=== PATIENT | female | born 1950 | race Two or more races ===

== ENCOUNTER 2017-11-27 19:36 | Inpatient (IN) | payer OTHER, MEDICAID ==
[~2017-11-27] VITALS: Ht 160 cm; Wt 97.4 kg
[2017-11-27] MEDS ORDERED: SODIUM CHLORIDE 0.9% 500 ML IVB ONE (20:33)
[2017-11-27 22:13] LABS: Alanine Aminotransferase 72 U/L (13-56); Albumin 2.4 g/dL (3.4-5.0); Alkaline Phosphatase 124 U/L (45-117); Anion Gap 11 (5-15); Aspartate Aminotransferase 59 U/L (15-37); BUN/Creatinine Ratio 17.3; Bilirubin, Total 3.7 mg/dL (0.2-1.0); Blood Urea Nitrogen 29 mg/dL (7-18); Calcium 8.2 mg/dL (8.5-10.1); Carbon Dioxide 16 mmol/L (21-32); Chloride 103 mmol/L (98-107); GFR African American 39 mL/min; GFR Non-African American 32 mL/min; Glucose 90 mg/dL (74-106); Magnesium 2.1 mg/dL (1.6-2.6); Sodium 130 mmol/L (136-145); Total Protein 6.9 g/dL (6.4-8.2)
[2017-11-27 22:21] LABS: Potassium 6.6 mmol/L (3.5-5.1)
[2017-11-27 23:49] LABS: Hematocrit 33.6 % (36.0-46.0); Hemoglobin 10.8 g/dL (12.2-16.2); Mean Corpuscular Hgb Conc. 32.1 g/dL (32.0-36.0); Mean Corpuscular Volume 84.1 fL (80.0-100.0); Platelet Count (auto) 171 10^3/uL (140-450); Red Blood Cells 3.99 10^6/uL (4.0-5.20); Red Cell Distribution Width 17.9 % (11.8-14.3); White Blood Cell 15.2 10^3/uL (4.4-10.8)
[2017-11-27 23:57] LABS: Basophils % (manual) 0 (0.0-2.0); Blast Cells 0; Metamyelocytes % 0; Myelocytes % 0; Promyelocytes % 0; Reactive Lymphocytes 0
[2017-11-28] VITALS (28 sets, daily range): BP systolic 74–121; BP diastolic 28–67
[2017-11-28 00:03] LABS: BUN/Creatinine Ratio 17.5; Calcium 8.1 mg/dL (8.5-10.1)
[2017-11-28] MEDS ORDERED: SUCCINYLCHOLINE CHLORIDE 20 MG/ML 10ML VIAL IV ONE ×2 (00:06→01:15)
[2017-11-28 00:07] LABS: Potassium 6.8 mmol/L (3.5-5.1)
[2017-11-28 00:18] LABS: Band Neutrophils % (manual) 4; Eosinophils % (manual) 1 (0-7); Lymphocytes % (manual) 10 (10.0-50.0); Monocytes % (manual) 9 (0-12)
[2017-11-28] MEDS ORDERED: PROPOFOL 100 ML IV SCH (00:41)
[2017-11-28] MEDS ORDERED: PROPOFOL 100 ML IV ONE (00:43)
[2017-11-28] MEDS ORDERED: PANTOPRAZOLE 40 MG/10 ML VIAL IV ONE (00:45)
[2017-11-28] MEDS ORDERED: NITROGLYCERIN 0.4 MG SL TAB SL PRN (00:45)
[2017-11-28] MEDS ORDERED: MORPHINE SULFATE 8mg/ml INJ SDV IV PRN (00:45)
[2017-11-28] MEDS ORDERED: PIPERACILLIN-TAZOB 2.25GM 50 ML IV SCH (00:45)
[2017-11-28] MEDS: SODIUM CHLORIDE 0.9% 1,000 ML IV SCH ×2 (00:45→17:06)
[2017-11-28] MEDS ORDERED: hydrALAZINE HCL 20 MG/ML VL IV PRN (00:45)
[2017-11-28] MEDS ORDERED: LACTULOSE 20Gm/30ML SOLN PO ONE (00:45)
[2017-11-28] MEDS ORDERED: SODIUM POLYSTYRENE SULF 15GM/60ML SUSP PO ONE ×3 (01:00→07:15)
[2017-11-28] MEDS ORDERED: CALCIUM GLUC 4.65meq/50ml D5AE 50 ML IV ONE ×2 (01:00→07:15)
[2017-11-28] MEDS ORDERED: FUROSEMIDE 20 MG/2 ML VIAL IV ONE (01:00)
[2017-11-28 01:48] LABS: INR 1.63 (0.9-1.15); Partial Thromboplastin Time 34.8 sec (22.64-33.71); Prothrombin Time 17.8 sec (9.37-12.3)
[2017-11-28] MEDS ORDERED: MIDAZOLAM DRIP 50 mg/50mL 50 ML IV ONE (02:12)
[2017-11-28] MEDS: PROPOFOL 100 ML IV SCH (02:12)
[2017-11-28] MEDS ORDERED: SODIUM CHLORIDE 0.9% 500 ML IV ONE (02:15)
[2017-11-28] MEDS: MIDAZOLAM DRIP 50 mg/50mL 50 ML IV SCH (02:35)
[2017-11-28] MEDS ORDERED: LACTULOSE 20Gm/30ML SOLN PR ONE (02:45)
[2017-11-28] MEDS ORDERED: LACTULOSE 20Gm/30ML SOLN PO SCH (06:00)
[2017-11-28] MEDS: LACTULOSE 20Gm/30ML SOLN PO SCH ×5 (06:20→22:00)
[2017-11-28] MEDS ORDERED: NOREPINEPHRINE BITARTRATE 1 ML IV ONE (06:57)
[2017-11-28] MEDS: NOREPINEPHRINE 16 MG/500ML KIT 500 ML IV SCH (07:10)
[2017-11-28] MEDS ORDERED: ALBUTEROL SULF 2.5 MG/0.5ML(0.5%) NEB SOLN NEB ONE (07:15)
[2017-11-28] MEDS ORDERED: InsuLIN REG 1unit/0.01ml Soln (100units/ml) IV ONE (07:15)
[2017-11-28] MEDS ORDERED: SODIUM BICARBONATE 8.4 % INJ 50ML VIAL IV ONE (07:15)
[2017-11-28] MEDS ORDERED: DEXTROSE (50%) 50ML SYRG IV ONE (07:15)
[2017-11-28 09:51] LABS: Urine Bacteria NONE SEEN /hpf (None Seen); Urine Blood Negative /uL (Negative); Urine Budding Yeast FEW /hpf (None Seen); Urine Mucus FEW (None Seen); Urine Specific Gravity 1.021 (1.001-1.035); Urine WBC 4 /hpf (0 - 5)
[2017-11-28] MEDS: PANTOPRAZOLE 40 MG/10 ML VIAL IV SCH (10:39)
[2017-11-28] MEDS: PIPERACILLIN-TAZOB 2.25GM 50 ML IV SCH ×3 (12:10→23:41)
[2017-11-28] MEDS: PHENYLEPHRINE INJ 20 MG in SODIUM CHL 0.9% 250 ML IV SCH ×2 (15:18→23:20)
[2017-11-29] VITALS (103 sets, daily range): BP systolic 81–120; BP diastolic 33–83
[2017-11-29] MEDS: PROPOFOL 100 ML IV SCH (00:44)
[2017-11-29] MEDS: LACTULOSE 20Gm/30ML SOLN PO SCH ×6 (02:00→21:38)
[2017-11-29] MEDS: MIDAZOLAM DRIP 50 mg/50mL 50 ML IV SCH ×3 (02:07→22:00)
[2017-11-29] MEDS: NOREPINEPHRINE 16 MG/500ML KIT 500 ML IV SCH ×2 (03:44→22:00)
[2017-11-29] MEDS: PIPERACILLIN-TAZOB 2.25GM 50 ML IV SCH ×3 (06:29→19:19)
[2017-11-29 07:46] LABS: Red Cell Distribution Width 18.6 % (11.8-14.3)
[2017-11-29 07:51] LABS: Hematocrit 29.9 % (36.0-46.0); Hemoglobin 9.5 g/dL (12.2-16.2); Mean Corpuscular Hemoglobin 27.4 pg (28.0-32.0); Mean Corpuscular Volume 85.7 fL (80.0-100.0); Platelet Count (auto) 154 10^3/uL (140-450); Red Blood Cells 3.48 10^6/uL (4.0-5.20); White Blood Cell 17.1 10^3/uL (4.4-10.8)
[2017-11-29] MEDS: PHENYLEPHRINE INJ 20 MG in SODIUM CHL 0.9% 250 ML IV SCH ×3 (07:58→19:15)
[2017-11-29 08:02] LABS: Band Neutrophils % (manual) 0; Basophils % (manual) 0 (0.0-2.0); Blast Cells 0; Metamyelocytes % 0; Myelocytes % 0; Promyelocytes % 0; Reactive Lymphocytes 0
[2017-11-29 08:14] LABS: BUN/Creatinine Ratio 14.1; Bilirubin, Total 3.7 mg/dL (0.2-1.0); Calcium 7.7 mg/dL (8.5-10.1); Total Protein 5.8 g/dL (6.4-8.2)
[2017-11-29] MEDS: PANTOPRAZOLE 40 MG/10 ML VIAL IV SCH (09:53)
[2017-11-29 10:42] LABS: Creatinine, Urine 114 mg/dL (30.0-125.0); Protein, Urine 47.1 mg/dL (0.0-11.9); Sodium Urine < 5 mmol/L (40-220)
[2017-11-29 12:47] LABS: Hepatitis B Surface Antigen Negative (Negative)
[2017-11-29 12:48] LABS: Hepatitis C Antibody Negative (Negative)
[2017-11-29] MEDS: OCTREOTIDE ACETATE 100 MCG/ML VL SUBCUT SCH ×2 (14:00→21:39)
[2017-11-29] MEDS: SODIUM CHLORIDE 0.9% 1,000 ML IV SCH ×2 (14:11→22:57)
[2017-11-29] MEDS: ALBUMIN 25% 100 ML IV SCH ×2 (14:25→22:00)
[2017-11-29 14:46] LABS: Eosinophils % (manual) 1 (0-7); Lymphocytes % (manual) 7 (10.0-50.0); Monocytes % (manual) 4 (0-12)
[2017-11-29 20:14] LABS: Hemoglobin 8.2 g/dL (12.2-16.2); Mean Corpuscular Volume 87.2 fL (80.0-100.0)
[2017-11-29] MEDS ORDERED: PANTOPRAZOLE 40 MG/10 ML VIAL IV ONE (20:15)
[2017-11-29 20:16] LABS: Hematocrit 25.8 % (36.0-46.0); Mean Corpuscular Hemoglobin 27.6 pg (28.0-32.0); Mean Corpuscular Hgb Conc. 31.6 g/dL (32.0-36.0); Platelet Count (auto) 118 10^3/uL (140-450); Red Blood Cells 2.96 10^6/uL (4.0-5.20); Red Cell Distribution Width 18.7 % (11.8-14.3); White Blood Cell 13.9 10^3/uL (4.4-10.8)
[2017-11-29 20:20] LABS: Basophils % (manual) 0 (0.0-2.0); Blast Cells 0; Eosinophils % (manual) 0 (0-7); Myelocytes % 0; Promyelocytes % 0; Reactive Lymphocytes 0
[2017-11-29 20:40] LABS: Band Neutrophils % (manual) 4; Lymphocytes % (manual) 9 (10.0-50.0); Metamyelocytes % 2
[2017-11-29 20:41] LABS: Monocytes % (manual) 6 (0-12)
[2017-11-29] MEDS: OCTREOTIDE ACETATE 500 MCG in SODIUM CHL 0.9% 99 ML IV SCH (21:30)
[2017-11-29] MEDS: PANTOPRAZOLE 80 MG in SODIUM CHL 0.9% 60 ML IV SCH (21:30)
[2017-11-29 21:35] LABS: INR 2.72 (0.9-1.15)
[2017-11-29] MEDS: RIFAXIMIN 550 MG TAB PO SCH (21:39)
[2017-11-30] VITALS (108 sets, daily range): BP systolic 94–133; BP diastolic 43–73
[2017-11-30] MEDS: PHENYLEPHRINE INJ 20 MG in SODIUM CHL 0.9% 250 ML IV SCH ×3 (00:38→16:32)
[2017-11-30] MEDS: PROPOFOL 100 ML IV SCH (00:44)
[2017-11-30 01:43] LABS: Hematocrit 28.3 % (36.0-46.0)
[2017-11-30] MEDS: LACTULOSE 20Gm/30ML SOLN PO SCH ×6 (02:00→22:00)
[2017-11-30] MEDS: ALBUMIN 25% 100 ML IV SCH (03:04)
[2017-11-30] MEDS: MIDAZOLAM DRIP 50 mg/50mL 50 ML IV SCH ×3 (03:05→22:16)
[2017-11-30 05:50] LABS: White Blood Cell 9.4 10^3/uL (4.4-10.8)
[2017-11-30 05:58] LABS: Hematocrit 24.4 % (36.0-46.0); Hemoglobin 8.1 g/dL (12.2-16.2); Mean Corpuscular Hemoglobin 28.1 pg (28.0-32.0); Mean Corpuscular Hgb Conc. 33.1 g/dL (32.0-36.0); Mean Corpuscular Volume 85.1 fL (80.0-100.0); Platelet Count (auto) 64 10^3/uL (140-450); Red Blood Cells 2.87 10^6/uL (4.0-5.20)
[2017-11-30 06:08] LABS: Basophils % (manual) 0 (0.0-2.0); Blast Cells 0; Myelocytes % 0; Promyelocytes % 0; Reactive Lymphocytes 0
[2017-11-30] MEDS: PIPERACILLIN-TAZOB 2.25GM 50 ML IV SCH ×4 (06:14→17:38)
[2017-11-30 06:29] LABS: Albumin 2.3 g/dL (3.4-5.0); BUN/Creatinine Ratio 17.5; Bilirubin, Total 4.3 mg/dL (0.2-1.0); Calcium 7.7 mg/dL (8.5-10.1); Total Protein 5.4 g/dL (6.4-8.2)
[2017-11-30 06:45] LABS: Band Neutrophils % (manual) 5; Eosinophils % (manual) 1 (0-7); Lymphocytes % (manual) 14 (10.0-50.0); Metamyelocytes % 2; Monocytes % (manual) 9 (0-12)
[2017-11-30] MEDS: PANTOPRAZOLE 80 MG in SODIUM CHL 0.9% 60 ML IV SCH ×2 (07:01→16:15)
[2017-11-30] MEDS: OCTREOTIDE ACETATE 500 MCG in SODIUM CHL 0.9% 99 ML IV SCH ×2 (07:01→16:32)
[2017-11-30] MEDS: PANTOPRAZOLE 40 MG/10 ML VIAL IV SCH (10:00)
[2017-11-30] MEDS: RIFAXIMIN 550 MG TAB PO SCH ×2 (10:00→22:01)
[2017-11-30] MEDS: PHYTONADIONE (VIT K)10 MG/ML 1ML VIAL SUBCUT SCH (10:00)
[2017-11-30 10:42] LABS: Hemoglobin 7.8 g/dL (12.2-16.2)
[2017-11-30 10:44] LABS: Hematocrit 24.6 % (36.0-46.0)
[2017-11-30 10:56] LABS: INR 1.89 (0.9-1.15); Prothrombin Time 20.7 sec (9.37-12.3)
[2017-11-30] MEDS: SODIUM BICARBONATE 50ML VIAL 50 ML in D5W/SOD CHL 0.45% 1,000 ML IV SCH (13:30)
[2017-11-30 21:20] LABS: Hematocrit 29.5 % (36.0-46.0); Hemoglobin 9.9 g/dL (12.2-16.2)
[2017-12-01] VITALS (108 sets, daily range): BP systolic 90–146; BP diastolic 43–84
[2017-12-01] MEDS: PIPERACILLIN-TAZOB 2.25GM 50 ML IV SCH ×5 (00:05→23:48)
[2017-12-01] MEDS: PROPOFOL 100 ML IV SCH (00:44)
[2017-12-01] MEDS: PHENYLEPHRINE INJ 20 MG in SODIUM CHL 0.9% 250 ML IV SCH ×3 (01:38→17:46)
[2017-12-01] MEDS: LACTULOSE 20Gm/30ML SOLN PO SCH ×6 (02:03→21:58)
[2017-12-01] MEDS: OCTREOTIDE ACETATE 500 MCG in SODIUM CHL 0.9% 99 ML IV SCH ×3 (02:03→23:48)
[2017-12-01] MEDS: MIDAZOLAM DRIP 50 mg/50mL 50 ML IV SCH ×2 (03:05→09:48)
[2017-12-01 03:58] LABS: Basophils # (auto) 0 uL; Hemoglobin 10.2 g/dL (12.2-16.2); Monocytes # (auto) 0.8 uL; White Blood Cell 10.5 10^3/uL (4.4-10.8)
[2017-12-01 04:01] LABS: Basophils % (auto) 0.2 % (0.0-2.0); Eosinophils # (auto) 0.1 uL; Eosinophils % (auto) 1.3 % (0.0-7.0); Hematocrit 30.5 % (36.0-46.0); Lymphocytes % (auto) 9.1 % (10.0-50.0); Mean Corpuscular Hemoglobin 28.1 pg (28.0-32.0); Mean Corpuscular Hgb Conc. 33.4 g/dL (32.0-36.0); Mean Corpuscular Volume 84.2 fL (80.0-100.0); Monocytes % (auto) 7.9 % (0.0-12.0); Neutrophils # (auto) 8.6 uL; Neutrophils % (auto) 81.5 % (37.0-80.0); Nucleated Red Blood Cells % 0.2 %; Platelet Count (auto) 58 10^3/uL (140-450); Red Blood Cells 3.62 10^6/uL (4.0-5.20); Red Cell Distribution Width 17.7 % (11.8-14.3)
[2017-12-01 04:10] LABS: Albumin 2.2 g/dL (3.4-5.0); Calcium 7.3 mg/dL (8.5-10.1)
[2017-12-01 04:14] LABS: Bilirubin, Total 5.8 mg/dL (0.2-1.0); Total Protein 5.4 g/dL (6.4-8.2)
[2017-12-01 04:30] LABS: Potassium 2.8 mmol/L (3.5-5.1)
[2017-12-01] MEDS: PANTOPRAZOLE 80 MG in SODIUM CHL 0.9% 60 ML IV SCH ×3 (05:10→23:49)
[2017-12-01] MEDS: SODIUM BICARBONATE 50ML VIAL 50 ML in D5W/SOD CHL 0.45% 1,000 ML IV SCH ×2 (06:29→09:47)
[2017-12-01] MEDS: POTASSIUM CHL 20MEQ/100ML 100 ML IV SCH ×4 (06:30→12:00)
[2017-12-01] MEDS: NOREPINEPHRINE 16 MG/500ML KIT 500 ML IV SCH (07:09)
[2017-12-01] MEDS ORDERED: SODIUM BICARBONATE 8.4% INJ 50ML SYRINGE ONE (08:31)
[2017-12-01] MEDS: PANTOPRAZOLE 40 MG/10 ML VIAL IV SCH (10:16)
[2017-12-01] MEDS: RIFAXIMIN 550 MG TAB PO SCH ×2 (10:16→21:56)
[2017-12-01] MEDS: PHYTONADIONE (VIT K)10 MG/ML 1ML VIAL SUBCUT SCH (10:17)
[2017-12-01] MEDS: D5W/SOD CHL 0.45%/KCL 20MEQ 1,000 ML IV SCH (12:44)
[2017-12-02] VITALS (103 sets, daily range): BP systolic 92–147; BP diastolic 50–91
[2017-12-02] MEDS: D5W/SOD CHL 0.45%/KCL 20MEQ 1,000 ML IV SCH ×3 (00:35→09:45)
[2017-12-02] MEDS: PROPOFOL 100 ML IV SCH (00:44)
[2017-12-02] MEDS: LACTULOSE 20Gm/30ML SOLN PO SCH ×6 (02:24→22:10)
[2017-12-02] MEDS: PHENYLEPHRINE INJ 20 MG in SODIUM CHL 0.9% 250 ML IV SCH ×3 (02:38→17:32)
[2017-12-02] MEDS: PIPERACILLIN-TAZOB 2.25GM 50 ML IV SCH ×2 (06:37→12:09)
[2017-12-02] MEDS: NOREPINEPHRINE 16 MG/500ML KIT 500 ML IV SCH ×2 (06:45→10:51)
[2017-12-02 07:14] LABS: Basophils # (auto) 0 uL; Eosinophils # (auto) 0.2 uL; Hemoglobin 9.8 g/dL (12.2-16.2); Red Cell Distribution Width 18.4 % (11.8-14.3); White Blood Cell 9.8 10^3/uL (4.4-10.8)
[2017-12-02 07:18] LABS: Basophils % (auto) 0.2 % (0.0-2.0); Eosinophils % (auto) 2.1 % (0.0-7.0); Hematocrit 29.5 % (36.0-46.0); Lymphocytes # (auto) 1.1 uL; Lymphocytes % (auto) 10.8 % (10.0-50.0); Mean Corpuscular Hemoglobin 28.4 pg (28.0-32.0); Mean Corpuscular Hgb Conc. 33.3 g/dL (32.0-36.0); Mean Corpuscular Volume 85.2 fL (80.0-100.0); Monocytes % (auto) 10.5 % (0.0-12.0); Neutrophils # (auto) 7.5 uL; Neutrophils % (auto) 76.4 % (37.0-80.0); Nucleated Red Blood Cells % 0.3 %; Platelet Count (auto) 55 10^3/uL (140-450); Red Blood Cells 3.46 10^6/uL (4.0-5.20)
[2017-12-02 07:23] LABS: BUN/Creatinine Ratio 20.5; Calcium 7.2 mg/dL (8.5-10.1)
[2017-12-02] MEDS: PANTOPRAZOLE 80 MG in SODIUM CHL 0.9% 60 ML IV SCH ×2 (08:15→12:09)
[2017-12-02] MEDS: OCTREOTIDE ACETATE 500 MCG in SODIUM CHL 0.9% 99 ML IV SCH ×3 (08:15→19:40)
[2017-12-02] MEDS: RIFAXIMIN 550 MG TAB PO SCH ×2 (10:23→22:10)
[2017-12-02] MEDS: MIDODRINE HCL 10 MG TAB PO SCH ×2 (14:30→22:10)
[2017-12-02] MEDS: NutriHep RTU 240 mL Unflavored PO SCH (17:32)
[2017-12-02] MEDS: PIPERACILLIN-TAZOB 3.375GM 100 ML IV SCH (17:32)
[2017-12-03] VITALS (103 sets, daily range): BP systolic 74–163; BP diastolic 45–90
[2017-12-03] MEDS: PIPERACILLIN-TAZOB 3.375GM 100 ML IV SCH ×4 (00:25→18:36)
[2017-12-03] MEDS: PROPOFOL 100 ML IV SCH (00:44)
[2017-12-03] MEDS: MIDAZOLAM DRIP 50 mg/50mL 50 ML IV SCH (02:07)
[2017-12-03] MEDS: LACTULOSE 20Gm/30ML SOLN PO SCH ×6 (02:25→22:20)
[2017-12-03] MEDS: PHENYLEPHRINE INJ 20 MG in SODIUM CHL 0.9% 250 ML IV SCH ×3 (03:38→20:18)
[2017-12-03 03:58] LABS: Hemoglobin 9.7 g/dL (12.2-16.2); Platelet Count (auto) 62 10^3/uL (140-450)
[2017-12-03 04:01] LABS: Albumin 1.8 g/dL (3.4-5.0); BUN/Creatinine Ratio 18.3; Calcium 7.2 mg/dL (8.5-10.1); Potassium 3.7 mmol/L (3.5-5.1); Total Protein 5.2 g/dL (6.4-8.2)
[2017-12-03 04:02] LABS: Hematocrit 29.6 % (36.0-46.0); Mean Corpuscular Hgb Conc. 32.7 g/dL (32.0-36.0); Mean Corpuscular Volume 85.5 fL (80.0-100.0); Red Blood Cells 3.46 10^6/uL (4.0-5.20); White Blood Cell 9.5 10^3/uL (4.4-10.8)
[2017-12-03] MEDS: OCTREOTIDE ACETATE 500 MCG in SODIUM CHL 0.9% 99 ML IV SCH ×2 (04:15→18:34)
[2017-12-03] MEDS: PANTOPRAZOLE 80 MG in SODIUM CHL 0.9% 60 ML IV SCH ×2 (04:15→15:12)
[2017-12-03 04:30] LABS: Basophils % (manual) 0 (0.0-2.0); Blast Cells 0; Promyelocytes % 0; Reactive Lymphocytes 0
[2017-12-03] MEDS: D5W/SOD CHL 0.45%/KCL 20MEQ 1,000 ML IV SCH (06:10)
[2017-12-03 06:51] LABS: Band Neutrophils % (manual) 3; Eosinophils % (manual) 6 (0-7); Lymphocytes % (manual) 10 (10.0-50.0); Metamyelocytes % 1; Monocytes % (manual) 9 (0-12); Myelocytes % 1
[2017-12-03] MEDS: NutriHep RTU 240 mL Unflavored PO SCH ×3 (08:00→18:00)
[2017-12-03] MEDS: MIDODRINE HCL 10 MG TAB PO SCH ×2 (11:09→22:20)
[2017-12-03] MEDS: RIFAXIMIN 550 MG TAB PO SCH ×2 (11:10→22:20)
[2017-12-04] VITALS (106 sets, daily range): BP systolic 83–158; BP diastolic 43–86
[2017-12-04] MEDS: PIPERACILLIN-TAZOB 3.375GM 100 ML IV SCH ×5 (00:22→23:23)
[2017-12-04] MEDS: PROPOFOL 100 ML IV SCH (00:44)
[2017-12-04] MEDS: PANTOPRAZOLE 80 MG in SODIUM CHL 0.9% 60 ML IV SCH ×3 (01:55→21:16)
[2017-12-04] MEDS: LACTULOSE 20Gm/30ML SOLN PO SCH ×6 (02:00→21:15)
[2017-12-04] MEDS: MIDAZOLAM DRIP 50 mg/50mL 50 ML IV SCH (02:07)
[2017-12-04] MEDS: PHENYLEPHRINE INJ 20 MG in SODIUM CHL 0.9% 250 ML IV SCH ×3 (04:38→21:18)
[2017-12-04 04:42] LABS: Hematocrit 32.9 % (36.0-46.0); Hemoglobin 10.5 g/dL (12.2-16.2); Mean Corpuscular Hemoglobin 27.5 pg (28.0-32.0); Mean Corpuscular Hgb Conc. 31.9 g/dL (32.0-36.0); Mean Corpuscular Volume 86.2 fL (80.0-100.0); Platelet Count (auto) 91 10^3/uL (140-450); Red Blood Cells 3.82 10^6/uL (4.0-5.20); Red Cell Distribution Width 18.8 % (11.8-14.3); White Blood Cell 11.8 10^3/uL (4.4-10.8)
[2017-12-04 05:00] LABS: Albumin 1.9 g/dL (3.4-5.0); BUN/Creatinine Ratio 18.8; Calcium 7.6 mg/dL (8.5-10.1); Potassium 4.2 mmol/L (3.5-5.1)
[2017-12-04 05:03] LABS: Bilirubin, Total 5.1 mg/dL (0.2-1.0); Total Protein 6.1 g/dL (6.4-8.2)
[2017-12-04 05:10] LABS: Basophils % (manual) 0 (0.0-2.0); Blast Cells 0; Metamyelocytes % 0; Promyelocytes % 0; Reactive Lymphocytes 0
[2017-12-04] MEDS: OCTREOTIDE ACETATE 500 MCG in SODIUM CHL 0.9% 99 ML IV SCH ×2 (05:15→10:15)
[2017-12-04] MEDS: D5W/SOD CHL 0.45%/KCL 20MEQ 1,000 ML IV SCH ×2 (05:15→23:23)
[2017-12-04] MEDS: NOREPINEPHRINE 16 MG/500ML KIT 500 ML IV SCH ×2 (06:44→12:33)
[2017-12-04] MEDS: NutriHep RTU 240 mL Unflavored PO SCH ×3 (08:00→18:00)
[2017-12-04] MEDS: FREE WATER GT SCH ×4 (10:02→21:15)
[2017-12-04] MEDS: RIFAXIMIN 550 MG TAB PO SCH ×2 (10:02→21:15)
[2017-12-04] MEDS: MIDODRINE HCL 10 MG TAB PO SCH ×2 (10:02→21:15)
[2017-12-04 11:46] LABS: Band Neutrophils % (manual) 2; Eosinophils % (manual) 2 (0-7); Lymphocytes % (manual) 8 (10.0-50.0); Monocytes % (manual) 7 (0-12); Myelocytes % 1
[2017-12-05] VITALS (103 sets, daily range): BP systolic 91–141; BP diastolic 42–75
[2017-12-05] MEDS: PROPOFOL 100 ML IV SCH (00:44)
[2017-12-05] MEDS: LACTULOSE 20Gm/30ML SOLN PO SCH ×6 (01:32→21:33)
[2017-12-05] MEDS ORDERED: OCTREOTIDE ACETATE 100 MCG/ML VL ONE (01:32)
[2017-12-05] MEDS: FREE WATER GT SCH ×6 (01:32→21:34)
[2017-12-05] MEDS: OCTREOTIDE ACETATE 500 MCG in SODIUM CHL 0.9% 99 ML IV SCH ×4 (01:49→21:37)
[2017-12-05] MEDS: MIDAZOLAM DRIP 50 mg/50mL 50 ML IV SCH (02:07)
[2017-12-05 03:42] LABS: Basophils # (auto) 0 uL; Basophils % (auto) 0.6 % (0.0-2.0); Eosinophils # (auto) 0.2 uL; Hemoglobin 9.5 g/dL (12.2-16.2); Mean Corpuscular Hemoglobin 27.6 pg (28.0-32.0); Neutrophils # (auto) 5.4 uL; Nucleated Red Blood Cells % 0.1 %; Red Blood Cells 3.44 10^6/uL (4.0-5.20); Red Cell Distribution Width 19.5 % (11.8-14.3)
[2017-12-05 03:43] LABS: Eosinophils % (auto) 2.1 % (0.0-7.0); Hematocrit 29.9 % (36.0-46.0); Lymphocytes # (auto) 0.8 uL; Lymphocytes % (auto) 11.3 % (10.0-50.0); Mean Corpuscular Hgb Conc. 31.7 g/dL (32.0-36.0); Mean Corpuscular Volume 86.9 fL (80.0-100.0); Monocytes # (auto) 0.8 uL; Monocytes % (auto) 10.6 % (0.0-12.0); Neutrophils % (auto) 75.4 % (37.0-80.0); Platelet Count (auto) 57 10^3/uL (140-450); White Blood Cell 7.1 10^3/uL (4.4-10.8)
[2017-12-05 03:56] LABS: BUN/Creatinine Ratio 21.5; Calcium 7.7 mg/dL (8.5-10.1); Potassium 3.9 mmol/L (3.5-5.1)
[2017-12-05] MEDS: PIPERACILLIN-TAZOB 3.375GM 100 ML IV SCH ×4 (05:23→23:24)
[2017-12-05] MEDS: PHENYLEPHRINE INJ 20 MG in SODIUM CHL 0.9% 250 ML IV SCH ×3 (05:35→21:34)
[2017-12-05] MEDS: PANTOPRAZOLE 80 MG in SODIUM CHL 0.9% 60 ML IV SCH ×3 (06:15→21:36)
[2017-12-05] MEDS: NutriHep RTU 240 mL Unflavored PO SCH ×3 (08:00→17:34)
[2017-12-05] MEDS: RIFAXIMIN 550 MG TAB PO SCH ×2 (10:00→21:33)
[2017-12-05] MEDS: MIDODRINE HCL 10 MG TAB PO SCH ×2 (10:00→21:33)
[2017-12-05] MEDS ORDERED: FUROSEMIDE 20 MG/2 ML VIAL IV ONE (11:15)
[2017-12-05] MEDS ORDERED: TPN PER PHARMACY 0 ML IV SCH (11:15)
[2017-12-05 12:19] LABS: Albumin 1.8 g/dL (3.4-5.0); Magnesium 1.5 mg/dL (1.6-2.6); Phosphorus 2.6 mg/dL (2.5-4.90)
[2017-12-05] MEDS: D5W/SOD CHL 0.45%/KCL 20MEQ 1,000 ML IV SCH (16:41)
[2017-12-05] MEDS ORDERED: TPN PER PHARMACY IV NR ×9 (20:00)
[2017-12-05] MEDS: ACCU-CHEK COMFORT CURVE STRIP VI SCH (23:22)
[2017-12-05] MEDS: InsuLIN REG 1unit/0.01ml Soln (100units/ml) SC SCH (23:23)
[2017-12-06] VITALS (104 sets, daily range): BP systolic 85–155; BP diastolic 41–85
[2017-12-06] MEDS ORDERED: DEXTROSE (50%) 50ML SYRG IV SCH
[2017-12-06] MEDS: PROPOFOL 100 ML IV SCH (00:44)
[2017-12-06] MEDS: FREE WATER GT SCH ×6 (01:26→22:01)
[2017-12-06] MEDS: LACTULOSE 20Gm/30ML SOLN PO SCH ×6 (01:26→22:01)
[2017-12-06] MEDS: MIDAZOLAM DRIP 50 mg/50mL 50 ML IV SCH (02:07)
[2017-12-06] MEDS: PHENYLEPHRINE INJ 20 MG in SODIUM CHL 0.9% 250 ML IV SCH ×3 (03:29→22:04)
[2017-12-06] MEDS: NOREPINEPHRINE 16 MG/500ML KIT 500 ML IV SCH (03:30)
[2017-12-06 04:17] LABS: Red Blood Cells 3.34 10^6/uL (4.0-5.20); White Blood Cell 5.9 10^3/uL (4.4-10.8)
[2017-12-06 04:19] LABS: Hemoglobin 9.3 g/dL (12.2-16.2); Mean Corpuscular Hemoglobin 27.7 pg (28.0-32.0); Mean Corpuscular Hgb Conc. 31.9 g/dL (32.0-36.0); Mean Corpuscular Volume 86.8 fL (80.0-100.0); Platelet Count (auto) 59 10^3/uL (140-450); Red Cell Distribution Width 19.7 % (11.8-14.3)
[2017-12-06 04:31] LABS: Albumin 1.7 g/dL (3.4-5.0); Calcium 7.4 mg/dL (8.5-10.1); Magnesium 1.6 mg/dL (1.6-2.6); Phosphorus 2.7 mg/dL (2.5-4.90); Potassium 3.4 mmol/L (3.5-5.1); Total Protein 5.6 g/dL (6.4-8.2)
[2017-12-06 04:50] LABS: Blast Cells 0; Metamyelocytes % 0; Myelocytes % 0; Promyelocytes % 0; Reactive Lymphocytes 0
[2017-12-06] MEDS: OCTREOTIDE ACETATE 500 MCG in SODIUM CHL 0.9% 99 ML IV SCH ×2 (05:11→08:07)
[2017-12-06] MEDS: PIPERACILLIN-TAZOB 3.375GM 100 ML IV SCH ×3 (05:11→18:00)
[2017-12-06] MEDS: PANTOPRAZOLE 80 MG in SODIUM CHL 0.9% 60 ML IV SCH ×2 (05:11→08:07)
[2017-12-06] MEDS: ACCU-CHEK COMFORT CURVE STRIP VI SCH ×3 (05:12→17:15)
[2017-12-06] MEDS: InsuLIN REG 1unit/0.01ml Soln (100units/ml) SC SCH ×3 (05:12→17:15)
[2017-12-06 06:40] LABS: Band Neutrophils % (manual) 1; Basophils % (manual) 1 (0.0-2.0); Eosinophils % (manual) 3 (0-7); Lymphocytes % (manual) 16 (10.0-50.0); Monocytes % (manual) 9 (0-12)
[2017-12-06] MEDS: MIDODRINE HCL 10 MG TAB PO SCH ×2 (09:55→22:01)
[2017-12-06] MEDS: PANTOPRAZOLE 40 MG/10 ML VIAL IV SCH ×2 (10:22→22:01)
[2017-12-06] MEDS: RIFAXIMIN 550 MG TAB PO SCH ×2 (10:23→22:03)
[2017-12-06] MEDS ORDERED: POTASSIUM PHOSPHATE 22 MEQ in SODIUM CHL 0.9% 100 ML IV ONE (11:00)
[2017-12-06] MEDS ORDERED: MAGNESIUM SULFATE 1GM/100ML 100 ML IV ONE (12:00)
[2017-12-06] MEDS ORDERED: TPN PER PHARMACY IV NR ×8 (20:00)
[2017-12-06] MEDS: NOREPINEPHRINE 8 MG/250ML KIT 250 ML IV SCH (20:00)
[2017-12-07] VITALS (47 sets, daily range): BP systolic 86–130; BP diastolic 48–89
[2017-12-07] MEDS: ACCU-CHEK COMFORT CURVE STRIP VI SCH ×4 (00:02→18:05)
[2017-12-07] MEDS: PIPERACILLIN-TAZOB 3.375GM 100 ML IV SCH ×5 (00:02→23:41)
[2017-12-07] MEDS: InsuLIN REG 1unit/0.01ml Soln (100units/ml) SC SCH ×4 (00:05→18:00)
[2017-12-07] MEDS: FREE WATER GT SCH ×6 (02:07→22:12)
[2017-12-07] MEDS: LACTULOSE 20Gm/30ML SOLN PO SCH ×6 (02:07→22:11)
[2017-12-07 06:18] LABS: Hematocrit 28.2 % (36.0-46.0); Hemoglobin 9.2 g/dL (12.2-16.2); Platelet Count (auto) 58 10^3/uL (140-450)
[2017-12-07 06:20] LABS: Mean Corpuscular Hemoglobin 28.3 pg (28.0-32.0); Mean Corpuscular Hgb Conc. 32.6 g/dL (32.0-36.0); Mean Corpuscular Volume 86.8 fL (80.0-100.0); Red Blood Cells 3.25 10^6/uL (4.0-5.20); Red Cell Distribution Width 19.7 % (11.8-14.3); White Blood Cell 6.4 10^3/uL (4.4-10.8)
[2017-12-07 06:22] LABS: Basophils % (manual) 0 (0.0-2.0); Blast Cells 0; Metamyelocytes % 0; Myelocytes % 0; Promyelocytes % 0; Reactive Lymphocytes 0
[2017-12-07 06:33] LABS: Albumin 1.6 g/dL (3.4-5.0); BUN/Creatinine Ratio 21.9; Calcium 7.4 mg/dL (8.5-10.1); Magnesium 1.8 mg/dL (1.6-2.6); Potassium 3.5 mmol/L (3.5-5.1)
[2017-12-07 06:36] LABS: Bilirubin, Total 3.9 mg/dL (0.2-1.0); Total Protein 5.9 g/dL (6.4-8.2)
[2017-12-07 06:42] LABS: Phosphorus 3.1 mg/dL (2.5-4.90)
[2017-12-07 07:02] LABS: Band Neutrophils % (manual) 2; Eosinophils % (manual) 3 (0-7); Lymphocytes % (manual) 5 (10.0-50.0); Monocytes % (manual) 12 (0-12)
[2017-12-07] MEDS: PANTOPRAZOLE 40 MG/10 ML VIAL IV SCH ×2 (10:06→22:11)
[2017-12-07] MEDS: RIFAXIMIN 550 MG TAB PO SCH ×2 (10:06→22:11)
[2017-12-07] MEDS: MIDODRINE HCL 10 MG TAB PO SCH ×2 (10:06→22:11)
[2017-12-07] MEDS: NOREPINEPHRINE 8 MG/250ML KIT 250 ML IV SCH (10:30)
[2017-12-07] MEDS ORDERED: TPN PER PHARMACY IV NR ×9 (20:00)
[2017-12-08] VITALS (58 sets, daily range): BP systolic 95–163; BP diastolic 38–73
[2017-12-08] MEDS: LACTULOSE 20Gm/30ML SOLN PO SCH ×6 (02:11→21:48)
[2017-12-08] MEDS: FREE WATER GT SCH ×6 (02:11→22:00)
[2017-12-08] MEDS: InsuLIN REG 1unit/0.01ml Soln (100units/ml) SC SCH ×5 (06:00→23:56)
[2017-12-08] MEDS: PIPERACILLIN-TAZOB 3.375GM 100 ML IV SCH ×4 (06:18→23:56)
[2017-12-08] MEDS: ACCU-CHEK COMFORT CURVE STRIP VI SCH ×5 (06:18→23:56)
[2017-12-08 07:38] LABS: Hemoglobin 8.8 g/dL (12.2-16.2); White Blood Cell 5.7 10^3/uL (4.4-10.8)
[2017-12-08 07:42] LABS: Mean Corpuscular Hemoglobin 28.3 pg (28.0-32.0); Mean Corpuscular Hgb Conc. 32.6 g/dL (32.0-36.0); Mean Corpuscular Volume 86.6 fL (80.0-100.0); Red Blood Cells 3.12 10^6/uL (4.0-5.20)
[2017-12-08 07:44] LABS: Platelet Count (auto) 54 10^3/uL (140-450); Red Cell Distribution Width 20.2 % (11.8-14.3)
[2017-12-08 07:46] LABS: Basophils % (manual) 0 (0.0-2.0); Blast Cells 0; Metamyelocytes % 0; Myelocytes % 0; Promyelocytes % 0; Reactive Lymphocytes 0
[2017-12-08 07:59] LABS: Albumin 1.6 g/dL (3.4-5.0); BUN/Creatinine Ratio 24.1; Bilirubin, Total 3.6 mg/dL (0.2-1.0); Calcium 7.5 mg/dL (8.5-10.1); Magnesium 2.2 mg/dL (1.6-2.6); Phosphorus 2.5 mg/dL (2.5-4.90); Potassium 3.5 mmol/L (3.5-5.1); Total Protein 5.7 g/dL (6.4-8.2)
[2017-12-08 08:35] LABS: Band Neutrophils % (manual) 14; Eosinophils % (manual) 2 (0-7); Lymphocytes % (manual) 9 (10.0-50.0); Monocytes % (manual) 3 (0-12)
[2017-12-08] MEDS: MIDODRINE HCL 10 MG TAB PO SCH ×2 (09:14→21:48)
[2017-12-08] MEDS: PANTOPRAZOLE 40 MG/10 ML VIAL IV SCH ×2 (09:15→21:48)
[2017-12-08] MEDS: RIFAXIMIN 550 MG TAB PO SCH ×2 (09:17→21:48)
[2017-12-08] MEDS: NOREPINEPHRINE 8 MG/250ML KIT 250 ML IV SCH (10:30)
[2017-12-08] MEDS ORDERED: SODIUM BICARBONATE 8.4 % INJ 50ML VIAL IV ONE (10:45)
[2017-12-08] MEDS ORDERED: TPN PER PHARMACY IV NR ×8 (20:00)
[2017-12-09] VITALS (57 sets, daily range): BP systolic 98–139; BP diastolic 53–88
[2017-12-09] MEDS: LACTULOSE 20Gm/30ML SOLN PO SCH ×6 (02:44→22:03)
[2017-12-09] MEDS: FREE WATER GT SCH ×6 (02:44→22:26)
[2017-12-09 04:28] LABS: Hematocrit 29.6 % (36.0-46.0); Hemoglobin 9.5 g/dL (12.2-16.2); Mean Corpuscular Hemoglobin 28.2 pg (28.0-32.0); Mean Corpuscular Hgb Conc. 32.2 g/dL (32.0-36.0); Mean Corpuscular Volume 87.4 fL (80.0-100.0); Platelet Count (auto) 66 10^3/uL (140-450); Red Blood Cells 3.39 10^6/uL (4.0-5.20); White Blood Cell 8.6 10^3/uL (4.4-10.8)
[2017-12-09 04:36] LABS: Red Cell Distribution Width 20.5 % (11.8-14.3)
[2017-12-09 04:37] LABS: Basophils % (manual) 0 (0.0-2.0); Blast Cells 0; Metamyelocytes % 0; Myelocytes % 0
[2017-12-09 04:49] LABS: Albumin 1.7 g/dL (3.4-5.0); Calcium 7.6 mg/dL (8.5-10.1); Magnesium 2.2 mg/dL (1.6-2.6); Phosphorus 2.9 mg/dL (2.5-4.90); Potassium 3.8 mmol/L (3.5-5.1); Pre Albumin 4.3 mg/dL (20.0-40.0)
[2017-12-09 05:28] LABS: Band Neutrophils % (manual) 4; Eosinophils % (manual) 2 (0-7); Lymphocytes % (manual) 10 (10.0-50.0); Monocytes % (manual) 11 (0-12); Promyelocytes % 1; Reactive Lymphocytes 1
[2017-12-09] MEDS: ACCU-CHEK COMFORT CURVE STRIP VI SCH ×4 (05:32→23:42)
[2017-12-09] MEDS: PIPERACILLIN-TAZOB 3.375GM 100 ML IV SCH ×4 (05:32→23:36)
[2017-12-09] MEDS: InsuLIN REG 1unit/0.01ml Soln (100units/ml) SC SCH ×4 (05:33→23:43)
[2017-12-09] MEDS: PANTOPRAZOLE 40 MG/10 ML VIAL IV SCH ×2 (10:14→22:03)
[2017-12-09] MEDS: MIDODRINE HCL 10 MG TAB PO SCH ×2 (10:15→22:03)
[2017-12-09] MEDS: RIFAXIMIN 550 MG TAB PO SCH ×2 (10:15→22:03)
[2017-12-09] MEDS: NOREPINEPHRINE 8 MG/250ML KIT 250 ML IV SCH (10:16)
[2017-12-09] MEDS: LEVALBUTEROL HCL 1.25 MG/3 ML NEB NEB SCH ×2 (12:30→14:43)
[2017-12-09] MEDS ORDERED: PROP80CA10 PO (15:25)
[2017-12-09] MEDS ORDERED: TPN PER PHARMACY IV NR ×8 (20:00)
[2017-12-09] MEDS: methylPREDNISolone SOD SUCC 40 MG/ML VL IV SCH (22:26)
[2017-12-10] VITALS (25 sets, daily range): BP systolic 102–134; BP diastolic 55–86
[2017-12-10] MEDS: ACETYLCYSTEINE 10 %(100MG/ML) SOL 4ML NEB SCH ×4 (00:19→19:13)
[2017-12-10] MEDS: LEVALBUTEROL HCL 1.25 MG/3 ML NEB NEB SCH ×4 (00:19→19:13)
[2017-12-10] MEDS: FREE WATER GT SCH ×6 (02:27→22:00)
[2017-12-10] MEDS: LACTULOSE 20Gm/30ML SOLN PO SCH ×5 (02:27→21:55)
[2017-12-10 03:44] LABS: Hemoglobin 9.3 g/dL (12.2-16.2); Mean Corpuscular Hemoglobin 27.9 pg (28.0-32.0); White Blood Cell 7.2 10^3/uL (4.4-10.8)
[2017-12-10 03:46] LABS: Hematocrit 29.2 % (36.0-46.0); Mean Corpuscular Hgb Conc. 31.9 g/dL (32.0-36.0); Mean Corpuscular Volume 87.6 fL (80.0-100.0); Platelet Count (auto) 56 10^3/uL (140-450); Red Blood Cells 3.33 10^6/uL (4.0-5.20)
[2017-12-10 04:02] LABS: Albumin 1.7 g/dL (3.4-5.0); BUN/Creatinine Ratio 30.1; Calcium 7.6 mg/dL (8.5-10.1); Magnesium 2.1 mg/dL (1.6-2.6); Potassium 4.2 mmol/L (3.5-5.1)
[2017-12-10 04:05] LABS: Bilirubin, Total 4.3 mg/dL (0.2-1.0); Total Protein 6.5 g/dL (6.4-8.2)
[2017-12-10 04:06] LABS: Red Cell Distribution Width 20.2 % (11.8-14.3)
[2017-12-10 04:15] LABS: Phosphorus 3.8 mg/dL (2.5-4.90)
[2017-12-10 04:48] LABS: Blast Cells 0; Eosinophils % (manual) 0 (0-7); Metamyelocytes % 0; Myelocytes % 0; Promyelocytes % 0; Reactive Lymphocytes 0
[2017-12-10 04:51] LABS: Band Neutrophils % (manual) 3; Basophils % (manual) 1 (0.0-2.0); Lymphocytes % (manual) 5 (10.0-50.0); Monocytes % (manual) 3 (0-12)
[2017-12-10] MEDS: PIPERACILLIN-TAZOB 3.375GM 100 ML IV SCH ×2 (05:24→12:19)
[2017-12-10] MEDS: methylPREDNISolone SOD SUCC 40 MG/ML VL IV SCH ×3 (05:24→21:54)
[2017-12-10] MEDS: ACCU-CHEK COMFORT CURVE STRIP VI SCH ×3 (06:00→18:09)
[2017-12-10] MEDS: InsuLIN REG 1unit/0.01ml Soln (100units/ml) SC SCH ×3 (06:00→18:00)
[2017-12-10] MEDS: MIDODRINE HCL 10 MG TAB PO SCH ×2 (10:22→21:55)
[2017-12-10] MEDS: RIFAXIMIN 550 MG TAB PO SCH ×2 (10:22→21:55)
[2017-12-10] MEDS: PANTOPRAZOLE 40 MG/10 ML VIAL IV SCH ×2 (10:22→21:54)
[2017-12-10] MEDS: NOREPINEPHRINE 8 MG/250ML KIT 250 ML IV SCH (10:30)
[2017-12-10] MEDS ORDERED: TPN PER PHARMACY IV NR ×9 (20:00)
[2017-12-11] VITALS: BP 125/74
[2017-12-11] MEDS: ACCU-CHEK COMFORT CURVE STRIP VI SCH ×4 (00:09→17:43)
[2017-12-11] MEDS: LEVALBUTEROL HCL 1.25 MG/3 ML NEB NEB SCH ×4 (00:14→18:46)
[2017-12-11] MEDS: ACETYLCYSTEINE 10 %(100MG/ML) SOL 4ML NEB SCH ×4 (00:14→18:47)
[2017-12-11] MEDS: FREE WATER GT SCH ×6 (02:00→23:08)
[2017-12-11 04:00] VITALS: BP 134/78
[2017-12-11] MEDS: InsuLIN REG 1unit/0.01ml Soln (100units/ml) SC SCH ×4 (06:00→18:34)
[2017-12-11 06:16] LABS: Eosinophils # (auto) 0 uL; Hemoglobin 9.3 g/dL (12.2-16.2); Monocytes # (auto) 0.4 uL
[2017-12-11 06:20] LABS: Basophils # (auto) 0 uL; Basophils % (auto) 0.1 % (0.0-2.0); Hematocrit 28.2 % (36.0-46.0); Lymphocytes # (auto) 0.4 uL; Lymphocytes % (auto) 4.7 % (10.0-50.0); Mean Corpuscular Hemoglobin 28.6 pg (28.0-32.0); Mean Corpuscular Hgb Conc. 33.1 g/dL (32.0-36.0); Mean Corpuscular Volume 86.5 fL (80.0-100.0); Monocytes % (auto) 4.2 % (0.0-12.0); Nucleated Red Blood Cells % 0.2 %; Red Blood Cells 3.26 10^6/uL (4.0-5.20); White Blood Cell 8.8 10^3/uL (4.4-10.8)
[2017-12-11 06:21] LABS: Platelet Count (auto) 60 10^3/uL (140-450); Red Cell Distribution Width 20.7 % (11.8-14.3)
[2017-12-11] MEDS: LACTULOSE 20Gm/30ML SOLN PO SCH ×3 (06:26→22:47)
[2017-12-11 06:27] LABS: Albumin 1.8 g/dL (3.4-5.0); BUN/Creatinine Ratio 44.2; Bilirubin, Total 4.2 mg/dL (0.2-1.0); Calcium 8.3 mg/dL (8.5-10.1); Magnesium 2.4 mg/dL (1.6-2.6); Phosphorus 3.3 mg/dL (2.5-4.90); Potassium 4.6 mmol/L (3.5-5.1); Total Protein 6.6 g/dL (6.4-8.2)
[2017-12-11] MEDS: methylPREDNISolone SOD SUCC 40 MG/ML VL IV SCH ×3 (06:27→22:47)
[2017-12-11 08:00] VITALS: BP 128/67
[2017-12-11] MEDS: PANTOPRAZOLE 40 MG/10 ML VIAL IV SCH ×2 (10:26→22:49)
[2017-12-11] MEDS: MIDODRINE HCL 10 MG TAB PO SCH ×2 (11:17→22:46)
[2017-12-11] MEDS: RIFAXIMIN 550 MG TAB PO SCH ×2 (11:17→22:50)
[2017-12-11 11:39] LABS: INR 1.44 (0.9-1.15); Prothrombin Time 15.8 sec (9.37-12.3)
[2017-12-11 11:59] VITALS: BP 124/76
[2017-12-11 16:00] VITALS: BP 128/74
[2017-12-11] MEDS ORDERED: TPN PER PHARMACY IV NR ×8 (20:00)
[2017-12-11 20:53] VITALS: BP 125/75
[2017-12-12] MEDS: ACCU-CHEK COMFORT CURVE STRIP VI SCH ×4 (00:20→17:44)
[2017-12-12] MEDS: InsuLIN REG 1unit/0.01ml Soln (100units/ml) SC SCH ×4 (00:21→17:43)
[2017-12-12] MEDS: ACETYLCYSTEINE 10 %(100MG/ML) SOL 4ML NEB SCH ×5 (00:40→23:45)
[2017-12-12] MEDS: LEVALBUTEROL HCL 1.25 MG/3 ML NEB NEB SCH ×5 (00:41→23:45)
[2017-12-12] MEDS: FREE WATER GT SCH ×6 (04:09→22:38)
[2017-12-12 05:59] LABS: Basophils # (auto) 0 uL; Eosinophils # (auto) 0 uL; Hemoglobin 8.8 g/dL (12.2-16.2); Monocytes # (auto) 0.5 uL; Nucleated Red Blood Cells % 0.1 %
[2017-12-12 06:00] LABS: Basophils % (auto) 0.3 % (0.0-2.0); Hematocrit 26.9 % (36.0-46.0); Lymphocytes # (auto) 0.4 uL; Lymphocytes % (auto) 4.5 % (10.0-50.0); Mean Corpuscular Hemoglobin 28.6 pg (28.0-32.0); Mean Corpuscular Hgb Conc. 32.8 g/dL (32.0-36.0); Mean Corpuscular Volume 87.4 fL (80.0-100.0); Monocytes % (auto) 5.5 % (0.0-12.0); Neutrophils # (auto) 7.9 uL; Neutrophils % (auto) 89.7 % (37.0-80.0); Red Blood Cells 3.08 10^6/uL (4.0-5.20); White Blood Cell 8.8 10^3/uL (4.4-10.8)
[2017-12-12 06:02] LABS: Platelet Count (auto) 56 10^3/uL (140-450); Red Cell Distribution Width 20.8 % (11.8-14.3)
[2017-12-12] MEDS: LACTULOSE 20Gm/30ML SOLN PO SCH ×3 (06:09→22:38)
[2017-12-12] MEDS: methylPREDNISolone SOD SUCC 40 MG/ML VL IV SCH ×2 (06:09→14:44)
[2017-12-12 06:14] LABS: Albumin 1.7 g/dL (3.4-5.0); BUN/Creatinine Ratio 52.5; Bilirubin, Total 4.4 mg/dL (0.2-1.0); Calcium 7.9 mg/dL (8.5-10.1); Magnesium 2.4 mg/dL (1.6-2.6); Phosphorus 3.2 mg/dL (2.5-4.90); Potassium 5.1 mmol/L (3.5-5.1); Total Protein 6.1 g/dL (6.4-8.2)
[2017-12-12 08:00] VITALS: BP 115/63
[2017-12-12] MEDS: RIFAXIMIN 550 MG TAB PO SCH ×2 (09:48→22:38)
[2017-12-12] MEDS: MIDODRINE HCL 10 MG TAB PO SCH ×2 (09:48→22:38)
[2017-12-12] MEDS: PANTOPRAZOLE 40 MG/10 ML VIAL IV SCH ×2 (09:48→22:37)
[2017-12-12 12:00] VITALS: BP 124/72
[2017-12-12 16:00] VITALS: BP 108/77
[2017-12-12 20:00] VITALS: BP 79/49
[2017-12-12 20:15] VITALS: BP 123/76
[2017-12-12] MEDS: TPN PER PHARMACY IV NR ×11 (20:22)
[2017-12-12 22:25] VITALS: BP 79/49
[2017-12-13 00:02] VITALS: BP 132/84
[2017-12-13] MEDS: ACCU-CHEK COMFORT CURVE STRIP VI SCH ×4 (00:22→18:06)
[2017-12-13] MEDS: InsuLIN REG 1unit/0.01ml Soln (100units/ml) SC SCH ×4 (00:23→18:00)
[2017-12-13] MEDS: FREE WATER GT SCH ×6 (02:00→22:26)
[2017-12-13 04:15] VITALS: BP 121/60
[2017-12-13] MEDS: LACTULOSE 20Gm/30ML SOLN PO SCH ×3 (06:16→22:26)
[2017-12-13] MEDS: LEVALBUTEROL HCL 1.25 MG/3 ML NEB NEB SCH ×3 (07:30→19:10)
[2017-12-13] MEDS: ACETYLCYSTEINE 10 %(100MG/ML) SOL 4ML NEB SCH ×3 (07:30→19:10)
[2017-12-13 08:00] VITALS: BP 122/65
[2017-12-13 08:16] LABS: Basophils # (auto) 0 uL; Basophils % (auto) 0.1 % (0.0-2.0); Eosinophils # (auto) 0 uL; Lymphocytes # (auto) 0.2 uL; Monocytes # (auto) 0.4 uL; Neutrophils # (auto) 8.8 uL; Nucleated Red Blood Cells % 0.1 %
[2017-12-13 08:18] LABS: Hematocrit 30.3 % (36.0-46.0); Hemoglobin 9.8 g/dL (12.2-16.2); Mean Corpuscular Hemoglobin 28.1 pg (28.0-32.0); Mean Corpuscular Hgb Conc. 32.5 g/dL (32.0-36.0); Mean Corpuscular Volume 86.6 fL (80.0-100.0); Monocytes % (auto) 4.8 % (0.0-12.0); Neutrophils % (auto) 93.1 % (37.0-80.0); Platelet Count (auto) 60 10^3/uL (140-450); White Blood Cell 9.4 10^3/uL (4.4-10.8)
[2017-12-13 08:26] LABS: Red Cell Distribution Width 21.3 % (11.8-14.3)
[2017-12-13 08:32] LABS: Albumin 1.9 g/dL (3.4-5.0); BUN/Creatinine Ratio 56.2; Calcium 8.2 mg/dL (8.5-10.1); Magnesium 2.4 mg/dL (1.6-2.6); Phosphorus 3.5 mg/dL (2.5-4.90); Potassium 4.9 mmol/L (3.5-5.1); Pre Albumin 7.3 mg/dL (20.0-40.0); Total Protein 6.6 g/dL (6.4-8.2)
[2017-12-13] MEDS: predniSONE 20 MG TAB PO SCH (09:19)
[2017-12-13] MEDS: MIDODRINE HCL 10 MG TAB PO SCH ×2 (09:19→22:29)
[2017-12-13] MEDS: PANTOPRAZOLE 40 MG/10 ML VIAL IV SCH ×2 (09:20→22:26)
[2017-12-13] MEDS: RIFAXIMIN 550 MG TAB PO SCH ×2 (09:20→22:29)
[2017-12-13] MEDS: THIAMINE 100mg/ml INJ (200mg/2ml VIAL) IV SCH (11:53)
[2017-12-13 11:55] VITALS: BP 127/73
[2017-12-13 15:57] VITALS: BP 120/71
[2017-12-13] MEDS: TPN PER PHARMACY IV NR ×21 (19:08→20:07)
[2017-12-13 22:00] VITALS: BP 124/65
[2017-12-14] MEDS: ACCU-CHEK COMFORT CURVE STRIP VI SCH ×4 (00:20→19:08)
[2017-12-14] MEDS: InsuLIN REG 1unit/0.01ml Soln (100units/ml) SC SCH ×4 (00:20→18:00)
[2017-12-14] MEDS: LEVALBUTEROL HCL 1.25 MG/3 ML NEB NEB SCH ×5 (00:40→22:51)
[2017-12-14] MEDS: ACETYLCYSTEINE 10 %(100MG/ML) SOL 4ML NEB SCH ×5 (00:40→22:51)
[2017-12-14] MEDS: FREE WATER GT SCH ×6 (02:00→21:41)
[2017-12-14] MEDS: LACTULOSE 20Gm/30ML SOLN PO SCH ×3 (06:00→21:56)
[2017-12-14 06:27] LABS: BUN/Creatinine Ratio 52.5; Bilirubin, Total 8.2 mg/dL (0.2-1.0); Calcium 8.3 mg/dL (8.5-10.1); Magnesium 2.3 mg/dL (1.6-2.6); Phosphorus 3.5 mg/dL (2.5-4.90); Potassium 4.8 mmol/L (3.5-5.1); Total Protein 6.9 g/dL (6.4-8.2)
[2017-12-14 09:00] VITALS: BP 130/71
[2017-12-14] MEDS: predniSONE 20 MG TAB PO SCH (10:00)
[2017-12-14] MEDS: MIDODRINE HCL 10 MG TAB PO SCH ×2 (10:00→21:56)
[2017-12-14] MEDS: THIAMINE 100mg/ml INJ (200mg/2ml VIAL) IV SCH (10:00)
[2017-12-14] MEDS: PANTOPRAZOLE 40 MG/10 ML VIAL IV SCH ×2 (10:00→21:56)
[2017-12-14] MEDS: RIFAXIMIN 550 MG TAB PO SCH ×2 (10:00→21:56)
[2017-12-14] MEDS: MULTIPLE VITAMIN TAB PO SCH (10:00)
[2017-12-14 13:00] VITALS: BP 122/80
[2017-12-14 17:00] VITALS: BP 105/82
[2017-12-14] MEDS: TPN PER PHARMACY IV NR ×10 (19:22)
[2017-12-14] MEDS ORDERED: TPN PER PHARMACY IV NR ×9 (20:00)
[2017-12-14] MEDS ORDERED: ETOMIDATE (2MG/ML) 20ML VIAL IV ONE (23:19)
[2017-12-14] MEDS ORDERED: SUCCINYLCHOLINE CHLORIDE 20 MG/ML 10ML VIAL IV ONE (23:20)
[2017-12-14 23:35] VITALS: BP 59/44
[2017-12-14] MEDS ORDERED: NOREPINEPHRINE 8 MG/250ML KIT 250 ML IV ONE (23:38)
[2017-12-14 23:40] VITALS: BP 78/56
[2017-12-14] MEDS: MIDAZOLAM DRIP 50 mg/50mL 50 ML IV SCH (23:41)
[2017-12-14] MEDS ORDERED: NOREPINEPHRINE 8 MG/250ML KIT 250 ML IV SCH (23:41)
[2017-12-14] MEDS ORDERED: VANCOMYCIN PER PHARMACY 0 MG IV SCH (23:45)
[2017-12-14] MEDS ORDERED: MIDAZOLAM DRIP 50 mg/50mL 50 ML IV ONE (23:59)
[2017-12-15] VITALS (91 sets, daily range): BP systolic 74–147; BP diastolic 41–98
[2017-12-15] MEDS ORDERED: ETOMIDATE (2MG/ML) 20ML VIAL IV ONE
[2017-12-15] MEDS ORDERED: SUCCINYLCHOLINE CHLORIDE 20 MG/ML 10ML VIAL IV ONE
[2017-12-15] MEDS ORDERED: VANCOMYCIN 1GM/250ML 250 ML IV ONE (00:15)
[2017-12-15] MEDS: PIPERACILLIN-TAZOB 3.375GM 100 ML IV SCH ×5 (00:30→17:30)
[2017-12-15] MEDS ORDERED: SODIUM CHLORIDE 0.9% 1,000 ML IV ONE (00:30)
[2017-12-15 00:38] LABS: Eosinophils # (auto) 0 uL; Monocytes # (auto) 0.2 uL; Neutrophils # (auto) 6.6 uL; White Blood Cell 7.4 10^3/uL (4.4-10.8)
[2017-12-15 00:40] LABS: Basophils # (auto) 0 uL; Basophils % (auto) 0.2 % (0.0-2.0); Eosinophils % (auto) 0.2 % (0.0-7.0); Hematocrit 29.2 % (36.0-46.0); Hemoglobin 9.3 g/dL (12.2-16.2); Lymphocytes # (auto) 0.6 uL; Mean Corpuscular Hemoglobin 28.3 pg (28.0-32.0); Mean Corpuscular Hgb Conc. 31.8 g/dL (32.0-36.0); Neutrophils % (auto) 88.6 % (37.0-80.0); Platelet Count (auto) 75 10^3/uL (140-450); Red Blood Cells 3.28 10^6/uL (4.0-5.20)
[2017-12-15 00:42] LABS: Red Cell Distribution Width 21.7 % (11.8-14.3)
[2017-12-15 00:44] LABS: Albumin 1.5 g/dL (3.4-5.0); Calcium 7.2 mg/dL (8.5-10.1); Magnesium 2.1 mg/dL (1.6-2.6); Potassium 5.2 mmol/L (3.5-5.1)
[2017-12-15 00:47] LABS: Bilirubin, Total 7.6 mg/dL (0.2-1.0); Total Protein 5.5 g/dL (6.4-8.2)
[2017-12-15 00:48] LABS: INR 1.89 (0.9-1.15); Partial Thromboplastin Time 42.7 sec (22.64-33.71); Prothrombin Time 20.7 sec (9.37-12.3)
[2017-12-15] MEDS ORDERED: PHENYLEPHRINE IV 250 ML IV ONE ×3 (01:14→05:17)
[2017-12-15] MEDS: ACCU-CHEK COMFORT CURVE STRIP VI SCH ×4 (01:16→17:30)
[2017-12-15] MEDS: VASOPRESSIN 50 UNITS in D5W 5% 247.5 ML IV SCH ×2 (01:28→09:30)
[2017-12-15] MEDS ORDERED: PHENYLEPHRINE INJ 20 MG in D5W 5% 250 ML IV SCH (01:45)
[2017-12-15] MEDS: PHENYLEPHRINE INJ 20 MG in D5W 5% 250 ML IV SCH ×4 (03:01→08:00)
[2017-12-15] MEDS ORDERED: ALBUMIN 5% 250 ML IV ONE ×2 (03:03→03:15)
[2017-12-15] MEDS ORDERED: fentaNYL Drip 2500mCg/250mlNS 250 ML IV SCH (03:26)
[2017-12-15] MEDS ORDERED: fentaNYL Drip 2500mCg/250mlNS 250 ML IV ONE (03:30)
[2017-12-15 04:58] LABS: Hematocrit 33.8 % (36.0-46.0); Hemoglobin 10.6 g/dL (12.2-16.2); Mean Corpuscular Hgb Conc. 31.5 g/dL (32.0-36.0); Mean Corpuscular Volume 88.9 fL (80.0-100.0); Platelet Count (auto) 82 10^3/uL (140-450); White Blood Cell 4.8 10^3/uL (4.4-10.8)
[2017-12-15 05:04] LABS: Red Cell Distribution Width 21.2 % (11.8-14.3)
[2017-12-15 05:05] LABS: Basophils % (manual) 0 (0.0-2.0); Blast Cells 0; Promyelocytes % 0; Reactive Lymphocytes 0
[2017-12-15 05:09] LABS: Albumin 1.7 g/dL (3.4-5.0); BUN/Creatinine Ratio 45.5; Bilirubin, Total 9.5 mg/dL (0.2-1.0); Calcium 7.2 mg/dL (8.5-10.1); Potassium 4.9 mmol/L (3.5-5.1); Total Protein 5.6 g/dL (6.4-8.2)
[2017-12-15] MEDS: LACTULOSE 20Gm/30ML SOLN PO SCH ×3 (05:45→22:00)
[2017-12-15] MEDS: InsuLIN REG 1unit/0.01ml Soln (100units/ml) SC SCH ×4 (05:45→17:30)
[2017-12-15 06:16] LABS: Band Neutrophils % (manual) 33; Eosinophils % (manual) 1 (0-7); Lymphocytes % (manual) 9 (10.0-50.0); Metamyelocytes % 2; Monocytes % (manual) 4 (0-12); Myelocytes % 2
[2017-12-15 07:17] LABS: Hemoglobin 10.7 g/dL (12.2-16.2); Mean Corpuscular Hemoglobin 28.1 pg (28.0-32.0); Mean Corpuscular Hgb Conc. 31.5 g/dL (32.0-36.0); Mean Corpuscular Volume 89.3 fL (80.0-100.0); Platelet Count (auto) 81 10^3/uL (140-450); Red Blood Cells 3.81 10^6/uL (4.0-5.20); White Blood Cell 5.9 10^3/uL (4.4-10.8)
[2017-12-15 07:31] LABS: Albumin 2.1 g/dL (3.4-5.0); BUN/Creatinine Ratio 43.9; Bilirubin, Total 10.9 mg/dL (0.2-1.0); Calcium 7.6 mg/dL (8.5-10.1); Magnesium 2.1 mg/dL (1.6-2.6); Potassium 4.9 mmol/L (3.5-5.1); Pre Albumin 6.5 mg/dL (20.0-40.0); Total Protein 5.9 g/dL (6.4-8.2)
[2017-12-15] MEDS ORDERED: NOREPINEPHRINE 8 MG/250ML KIT 500 ML IV ONE ×2 (07:53→17:18)
[2017-12-15] MEDS: NOREPINEPHRINE BITARTRATE 16 MG in D5W 5% 250 ML IV SCH ×2 (08:00→08:53)
[2017-12-15] MEDS: ACETYLCYSTEINE 10 %(100MG/ML) SOL 4ML NEB SCH ×3 (08:02→19:27)
[2017-12-15] MEDS: LEVALBUTEROL HCL 1.25 MG/3 ML NEB NEB SCH ×3 (08:02→19:27)
[2017-12-15 08:05] LABS: Red Cell Distribution Width 20.9 % (11.8-14.3)
[2017-12-15 08:12] LABS: Basophils % (manual) 0 (0.0-2.0); Blast Cells 0; Promyelocytes % 0; Reactive Lymphocytes 0
[2017-12-15] MEDS: MIDAZOLAM DRIP 50 mg/50mL 50 ML IV SCH (09:37)
[2017-12-15] MEDS: PHENYLEPHRINE INJ 80 MG in SODIUM CHL 0.9% 250 ML IV SCH ×2 (09:59→20:00)
[2017-12-15] MEDS: PANTOPRAZOLE 40 MG/10 ML VIAL IV SCH ×2 (10:08→22:10)
[2017-12-15] MEDS: predniSONE 20 MG TAB PO SCH (10:09)
[2017-12-15] MEDS: THIAMINE 100mg/ml INJ (200mg/2ml VIAL) IV SCH (10:09)
[2017-12-15] MEDS: RIFAXIMIN 550 MG TAB PO SCH ×2 (10:09→22:00)
[2017-12-15] MEDS: MULTIPLE VITAMIN TAB PO SCH (10:09)
[2017-12-15] MEDS: SODIUM CHLORIDE 0.9% 1,000 ML IV SCH (10:45)
[2017-12-15 11:37] LABS: Band Neutrophils % (manual) 15; Eosinophils % (manual) 1 (0-7); Lymphocytes % (manual) 20 (10.0-50.0); Metamyelocytes % 5; Monocytes % (manual) 2 (0-12); Myelocytes % 2
[2017-12-15] MEDS ORDERED: HEPARIN DRIP/D5W 100UNITS/ML 250 ML IV SCH (13:05)
[2017-12-15] MEDS: EPINEPHrine HCL INJECTION 8 MG in D5W 5% 250 ML IV SCH ×2 (16:55→23:04)
[2017-12-15] MEDS ORDERED: EPINEPHrine HCL 250 ML IV ONE (16:56)
[2017-12-15] MEDS ORDERED: TPN PER PHARMACY IV NR ×10 (20:00)
[2017-12-16] VITALS (69 sets, daily range): BP systolic 62–191; BP diastolic 26–94
[2017-12-16] MEDS: LEVALBUTEROL HCL 1.25 MG/3 ML NEB NEB SCH ×3 (00:26→13:23)
[2017-12-16] MEDS: ACETYLCYSTEINE 10 %(100MG/ML) SOL 4ML NEB SCH ×3 (00:27→13:23)
[2017-12-16] MEDS: VASOPRESSIN 50 UNITS in D5W 5% 247.5 ML IV SCH ×2 (00:38→13:36)
[2017-12-16] MEDS: PHENYLEPHRINE INJ 80 MG in SODIUM CHL 0.9% 250 ML IV SCH ×2 (03:30→11:48)
[2017-12-16] MEDS: NOREPINEPHRINE BITARTRATE 16 MG in D5W 5% 250 ML IV SCH ×2 (03:31→13:19)
[2017-12-16 04:38] LABS: Hematocrit 28.8 % (36.0-46.0); Hemoglobin 8.3 g/dL (12.2-16.2)
[2017-12-16 04:40] LABS: Mean Corpuscular Volume 96.7 fL (80.0-100.0); Platelet Count (auto) 56 10^3/uL (140-450); Red Blood Cells 2.98 10^6/uL (4.0-5.20); White Blood Cell 14.9 10^3/uL (4.4-10.8)
[2017-12-16 04:41] LABS: Red Cell Distribution Width 21.2 % (11.8-14.3)
[2017-12-16 04:42] LABS: Blast Cells 0; Eosinophils % (manual) 0 (0-7); Promyelocytes % 0; Reactive Lymphocytes 0
[2017-12-16 04:58] LABS: Albumin 1.3 g/dL (3.4-5.0); BUN/Creatinine Ratio 30.1; Calcium 7.4 mg/dL (8.5-10.1)
[2017-12-16 05:04] LABS: Band Neutrophils % (manual) 35; Basophils % (manual) 1 (0.0-2.0); Lymphocytes % (manual) 8 (10.0-50.0); Metamyelocytes % 6; Monocytes % (manual) 6 (0-12); Myelocytes % 2
[2017-12-16 05:07] LABS: Bilirubin, Total 7.4 mg/dL (0.2-1.0); Magnesium 1.9 mg/dL (1.6-2.6); Phosphorus 7.8 mg/dL (2.5-4.90); Total Protein 4.2 g/dL (6.4-8.2)
[2017-12-16] MEDS ORDERED: EPINEPHrine HCL 500 ML IV ONE (05:28)
[2017-12-16] MEDS: PIPERACILLIN-TAZOB 3.375GM 100 ML IV SCH ×3 (05:34→12:15)
[2017-12-16] MEDS: EPINEPHrine HCL INJECTION 8 MG in D5W 5% 250 ML IV SCH ×2 (05:35→13:25)
[2017-12-16] MEDS: InsuLIN REG 1unit/0.01ml Soln (100units/ml) SC SCH ×3 (05:47→12:58)
[2017-12-16] MEDS: ACCU-CHEK COMFORT CURVE STRIP VI SCH ×3 (05:48→12:15)
[2017-12-16] MEDS: LACTULOSE 20Gm/30ML SOLN PO SCH ×2 (05:48→14:00)
[2017-12-16] MEDS ORDERED: FUROSEMIDE 100 MG/10ML VIAL IV ONE (09:30)
[2017-12-16] MEDS ORDERED: AMINO ACID INFUSION IN D10W 1,000 ML IV NR (09:30)
[2017-12-16] MEDS: PANTOPRAZOLE 40 MG/10 ML VIAL IV SCH (10:16)
[2017-12-16] MEDS: THIAMINE 100mg/ml INJ (200mg/2ml VIAL) IV SCH (10:17)
[2017-12-16] MEDS: predniSONE 20 MG TAB PO SCH (10:43)
[2017-12-16] MEDS: RIFAXIMIN 550 MG TAB PO SCH (10:44)
[2017-12-16] MEDS: MULTIPLE VITAMIN TAB PO SCH (10:44)
[2017-12-16] MEDS ORDERED: SODIUM BICARBONATE 8.4 % INJ 50ML VIAL IV ONE (10:45)
[2017-12-16] MEDS: SODIUM CHLORIDE 0.9% 1,000 ML IV SCH (15:00)
[2017-12-16] MEDS ORDERED: TPN PER PHARMACY IV NR ×17 (20:00)
== END 2017-12-16 20:42 | disposition expired | DRG 207 ==
LOC: ER 19:36 → EDBD 19:36 → TELE 19:37 → DOU IN ICU 11-28 20:20 → ICU WEST 11-29 03:05 → DOU IN ICU 12-10 11:00 → WEST WING 12-13 20:25 → TELE-WESTW 12-15 00:01 → ICU WEST 12-15 02:21
PROVIDERS: ADMIT Nurse Practitioner; ATTEND Family Medicine
PROC: 5A1955Z Respiratory Ventilation, Greater than 96 Consecutive Hours (ICD-10-PCS; principal; 2017-11-28)
PROC: 0BH17EZ Insertion of Endotracheal Airway into Trachea, Via Natural or Artificial Opening (ICD-10-PCS; 2017-11-28)
PROC: 02HV33Z Insertion of Infusion Device into Superior Vena Cava, Percutaneous Approach (ICD-10-PCS; 2017-11-28)
PROC: 30233N1 Transfusion of Nonautologous Red Blood Cells into Peripheral Vein, Percutaneous Approach (ICD-10-PCS; 2017-11-29)
PROC: 30233L1 Transfusion of Nonautologous Fresh Plasma into Peripheral Vein, Percutaneous Approach (ICD-10-PCS; 2017-11-30)
PROC: 30233K1 Transfusion of Nonautologous Frozen Plasma into Peripheral Vein, Percutaneous Approach (ICD-10-PCS; 2017-11-30)
PROC: 0BH17EZ Insertion of Endotracheal Airway into Trachea, Via Natural or Artificial Opening (ICD-10-PCS; 2017-12-15)
DX: J96.01 Acute respiratory failure with hypoxia (principal); N17.0 Acute kidney failure with tubular necrosis; K76.7 Hepatorenal syndrome; R57.8 Other shock; E87.4 Mixed disorder of acid-base balance; E72.20 Disorder of urea cycle metabolism, unspecified; I85.11 Secondary esophageal varices with bleeding; I12.0 Hypertensive chronic kidney disease with stage 5 chronic kidney disease or end stage renal disease; K22.6 Gastro-esophageal laceration-hemorrhage syndrome; N18.6 End stage renal disease; K70.41 Alcoholic hepatic failure with coma; K56.699 Other intestinal obstruction unspecified as to partial versus complete obstruction; D68.9 Coagulation defect, unspecified; Z66 Do not resuscitate; D69.59 Other secondary thrombocytopenia; E87.5 Hyperkalemia; F10.10 Alcohol abuse, uncomplicated; Z96.89 Presence of other specified functional implants; D63.1 Anemia in chronic kidney disease; G31.2 Degeneration of nervous system due to alcohol; K70.11 Alcoholic hepatitis with ascites; K80.20 Calculus of gallbladder without cholecystitis without obstruction; D64.9 Anemia, unspecified; D50.0 Iron deficiency anemia secondary to blood loss (chronic); E87.6 Hypokalemia; K21.9 Gastro-esophageal reflux disease without esophagitis; K44.9 Diaphragmatic hernia without obstruction or gangrene; K57.30 Diverticulosis of large intestine without perforation or abscess without bleeding; Z82.49 Family history of ischemic heart disease and other diseases of the circulatory system; Z71.3 Dietary counseling and surveillance
CPT/HCPCS: 31500; 36415; 36556; 36600; 51702; 70450; 71045; 74176; 76705; 80048; 80053; 80202; 81001; 82040; 82140; 82570; 82805; 82962; 83735; 83880; 84100; 84132; 84156; 84300; 84439; 84443; 84478; 84484; 85007; 85014; 85018; 85025; 85027; 85610; 85730; 86803; 86850; 86900; 86901; 86920; 87040; 87070; 87077; 87081; 87186; 87205; 87340; 92610; 93005; 93306; 94002; 94003; 94640; 94667; 94668; 95819; 96374; 96375; 96376; 97110; 97116; 97530; 99291; C9113; J0171; J0330; J0610; J1815; J2250; J2543; J2704; J3430; J3480; J3490; J7060; J7131; P9047